=== PATIENT | male | born 1940 | race Two or more races ===

== ENCOUNTER 2018-02-26 16:57 | Emergency (ER) | payer OTHER, MEDICAID ==
[~2018-02-26] VITALS: Ht 167.6 cm; Wt 76.2 kg
[2018-02-26 17:04] VITALS: Ht 167.6 cm; Wt 76.2 kg
[2018-02-26 19:57] VITALS: BP 130/76
== END 2018-02-26 19:57 | disposition home or self-care (01) ==
LOC: ED 16:57
DX: S01.81XA Laceration without foreign body of other part of head, initial encounter (principal); N40.0 Benign prostatic hyperplasia without lower urinary tract symptoms; W01.198A Fall on same level from slipping, tripping and stumbling with subsequent striking against other object, initial encounter; Y93.89 Activity, other specified; Y92.89 Other specified places as the place of occurrence of the external cause; Y99.8 Other external cause status
CPT/HCPCS: 90715

== ENCOUNTER 2019-08-05 13:45 | Emergency (ER) | payer OTHER ==
[~2019-08-05] VITALS: Ht 167.6 cm; Wt 76.7 kg
[2019-08-05 13:54] VITALS: Ht 167.6 cm; Wt 76.7 kg
[2019-08-05 14:35] VITALS: BP 148/68
== END 2019-08-05 14:35 | disposition home or self-care (01) ==
LOC: ED 13:45
DX: J02.9 Acute pharyngitis, unspecified (principal); K20.9 Esophagitis, unspecified; Z98.890 Other specified postprocedural states